=== PATIENT | male | born 1995 | race Caucasian/White ===

== ENCOUNTER 2021-02-05 18:09 | Emergency (ER) | payer BC ==
[~2021-02-05] VITALS: Ht 185.4 cm; Wt 104.3 kg
[2021-02-05] MEDS ORDERED: MUCINEX1200 MG PO (20:18)
[2021-02-05] MEDS ORDERED: PROAIR HFA8.5 GM INH (20:18)
== END 2021-02-05 21:45 | disposition home or self-care (01) ==
LOC: ER1 18:09
DX: Z23 Encounter for immunization (principal); U07.1 COVID-19; J02.9 Acute pharyngitis, unspecified; E66.9 Obesity, unspecified; F17.290 Nicotine dependence, other tobacco product, uncomplicated; Z90.89 Acquired absence of other organs; Z88.1 Allergy status to other antibiotic agents
CPT/HCPCS: 87081; 87880; 99283; M0243